=== PATIENT | female | born 1955 | race Hispanic/Latino ===

== ENCOUNTER 2017-05-31 20:46 | Emergency (ER) | payer OTHER ==
[2017-05-31] MEDS ORDERED: Acetaminophen 500 MG TAB ONE (21:23)
== END 2017-05-31 21:29 | disposition home or self-care (01) ==
LOC: SCSER 20:46
DX: J10.1 Influenza due to other identified influenza virus with other respiratory manifestations (principal)
CPT/HCPCS: 99283